=== PATIENT | male | born 1945 | race Caucasian/White ===

== ENCOUNTER 2021-08-23 11:02 | Day surgery (SDC) | payer OTHER ==
[2021-08-23 11:22] VITALS: TEMP 97.9
[2021-08-23] MEDS ORDERED: FERRIC CARBOXYMALTOSE 750 MG in SODIUM CHLORIDE 250 ML IVPB SCH (11:30)
[2021-08-23 12:00] VITALS: BP 116/56; PULSE 80
== END 2021-08-23 12:04 | disposition home or self-care (01) ==
LOC: FINFUSION 11:02 → FM/S 11:05 → FINFUSION 12:04 → EDSTATUS 13:45
PROVIDERS: ATTEND Family Medicine
PROC: 3E033GC Introduction of Other Therapeutic Substance into Peripheral Vein, Percutaneous Approach (ICD-10-PCS; principal; 2021-08-23)
DX: D50.9 Iron deficiency anemia, unspecified (principal)
CPT/HCPCS: 96365; J1439

== ENCOUNTER 2021-09-06 10:53 | Day surgery (SDC) | payer OTHER ==
[2021-09-06 11:14] VITALS: TEMP 98.4
[2021-09-06] MEDS ORDERED: FERRIC CARBOXYMALTOSE 750 MG in SODIUM CHLORIDE 250 ML IVPB SCH (11:30)
[2021-09-06 12:26] VITALS: BP 124/58; PULSE 61
== END 2021-09-06 12:26 | disposition home or self-care (01) ==
LOC: FM/S 10:53 → FINFUSION 10:53
PROVIDERS: ATTEND Family Medicine
PROC: 3E033GC Introduction of Other Therapeutic Substance into Peripheral Vein, Percutaneous Approach (ICD-10-PCS; principal; 2021-09-06)
DX: D50.9 Iron deficiency anemia, unspecified (principal)
CPT/HCPCS: 96365; J1439